=== PATIENT | female | born 1975 ===

== ENCOUNTER 2020-12-25 10:35 | Outpatient (CLI) | payer OTHER ==
--- NOTE | 2020-12-25 11:26 | XRay Report ---
CHEST 2 VIEWS INDICATION / CLINICAL INFORMATION: CHEST PAIN, UNSPECIFIED R07.9. COMPARISON: None available. FINDINGS: SUPPORT DEVICES: None. HEART / MEDIASTINUM: The heart size and pulmonary vasculature are normal. The aorta is normal in [place]. LUNGS / PLEURA: No significant pulmonary or pleural abnormality. No pneumothorax. ADDITIONAL FINDINGS: There is mild mid to lower thoracic spondylosis. IMPRESSION: No acute findings. Signer Name: Destin Soriano MD Signed: 12/25/2020 11:21 AM Workstation Name: [id number]
== END 2020-12-25 10:36 | disposition home or self-care (01) ==
LOC: XRAY 10:35
DX: R07.9 Chest pain, unspecified (principal); M47.814 Spondylosis without myelopathy or radiculopathy, thoracic region
CPT/HCPCS: 71046